=== PATIENT | female | born 1935 ===

== ENCOUNTER 2016-11-22 19:11 | Emergency (ER) | payer MEDICARE ==
--- NOTE | 2016-11-22 20:54 | RAD ---
HISTORY: Knee pain, ankle swelling COMPARISONS: None relevant TECHNIQUE: Multiple transverse and longitudinal ultrasound images were obtained of the left lower extremity from the level of the common femoral vein inferiorly through to the infrapopliteal veins using grayscale, color Doppler, and spectral Doppler imaging with and without compression and with augmentation. Comparison images were obtained of the contralateral common femoral vein. FINDINGS: VEINS: The venous system of the left lower extremity is compressible throughout its course, with normal flow on color Doppler imaging and normal response to augmentation on spectral Doppler imaging. SOFT TISSUES: Unremarkable. OTHER FINDINGS: There is a complicated popliteal cyst, with echogenic fluid, which measures approximately 9.1 x 0.8 x 3.7 cm IMPRESSION: NO LEFT LOWER EXTREMITY DEEP VEIN THROMBOSIS. 5.1 CM POPLITEAL FOSSA CYST, LIKELY A LARGE GARZON'S CYST
[2016-11-22 23:13] VITALS: BP 148/75
--- NOTE | 2016-11-23 13:00 | ED ---
donna Degroot Timothy, scribed for Pascual Borges MD on 11/22/16 at 2300 . Lower Extremity - HPI Summary HPI Summary: Olivia Jackson is a 81 yo female presenting to [facility] with 2/10 LLE pain and swelling since today with left knee pain for the past month. She states the pain increases with flexion of the left knee. Her MHx includes TIA. - History of Current Complaint Chief Complaint: EDExtremityLower Stated Complaint: LT KNEE/ANKLE PAIN Time Seen by Provider: 11/22/16 20:09 Hx Obtained From: Patient Mechanism Of Injury: Unknown Onset/Duration: Hours Severity Initially: Moderate Severity Currently: Moderate Pain Intensity: 2 Pain Scale Used: 0-10 Numeric Timing: Constant Location: Is Discrete @ - LLE Associated Signs And Symptoms: Positive: Swelling Aggravating Factor(s): Other - flexion - Allergies/Home Medications Allergies/Adverse Reactions: Allergies Allergy/AdvReac Type Severity Reaction Status Date / Time No Known Allergies Allergy Verified 11/22/16 19:32 PMH/Surg Hx/FS Hx/Imm Hx Neurological History: Reports: Other Neuro Impairments/Disorders - TIA Infectious Disease History: No Infectious Disease History: Denies: Traveled Outside the [place] in Last 30 Days - Family History Known Family History: Positive: Cardiac Disease Negative: Hypertension, Diabetes - Social History Alcohol Use: Weekly Hx Substance Use: No Substance Use Type: Reports: None Hx Tobacco Use: No Smoking Status (MU): Never Smoked Tobacco Review of Systems Constitutional: Negative Eyes: Negative ENT: Negative Cardiovascular: Negative Respiratory: Negative Gastrointestinal: Negative Genitourinary: Negative Musculoskeletal: Other - LLE swelling and pain Skin: Negative Neurological: Negative Psychological: Normal All Other Systems Reviewed And Are Negative: Yes Physical Exam Triage Information Reviewed: Yes Vital Signs On Initial Exam: Initial Vitals Temp Pulse Resp BP Pulse Ox 97.8 F 88 18 143/92 98 11/22/16 19:29 11/22/16 19:29 11/22/16 19:29 11/22/16 19:29 11/22/16 19:29 Vital Signs Reviewed: Yes Appearance: Positive: Well-Appearing, No Pain Distress, Well-Nourished Skin: Positive: Warm, Skin Color Reflects Adequate Perfusion, Dry Head/Face: Positive: Normal Head/Face Inspection Eyes: Positive: Normal ENT: Positive: Normal ENT inspection Neck: Positive: Supple, Nontender Respiratory/Lung Sounds: Positive: Clear to Auscultation, Breath Sounds Present Cardiovascular: Positive: RRR Abdomen Description: Positive: Nontender, Soft Bowel Sounds: Positive: Present Musculoskeletal: Positive: Other - tender at LLE with mild edema at left ankle Neurological: Positive: Normal Psychiatric: Positive: Normal, Affect/Mood Appropriate Diagnostics - Vital Signs Vital Signs Temp Pulse Resp BP Pulse Ox 11/22/16 21:48 98.9 F 67 16 147/73 100 11/22/16 19:29 97.8 F 88 18 143/92 98 - Laboratory Lab Statement: Any lab studies that have been ordered have been reviewed, and results considered in the medical decision making process. - Ultrasound No standard instances Ultrasound Interpretation: No Acute Changes - IMPRESSION: NO LEFT LOWER EXTREMITY DEEP VEIN THROMBOSIS. 5.1 CM POPLITEAL FOSSA CYST, LIKELY A LARGE MARIE'S CYST Ultrasound Interpretation Completed By: Radiologist - LLE US Lower Extremity Course/Dx - Course Assessment/Plan: Olivia Jackson is a 81 yo female presenting to [facility] with 2/10 LLE pain and swelling since today. Her medication list is reviewed this visit. Her LLE US suggests no DVT and a 5.1cm Marie's cyst. After clinical examination and review of her imaging study she will be discharged home with marie's cyst with appropriate instructions. - Diagnoses Provider Diagnoses: Marie's cyst Discharge - Discharge Plan Condition: Stable Disposition: HOME Patient Education Materials: Bakers Cyst (ED) Referrals: Mary Prado MD [Medical Doctor] - 2 Days [facility] PH[facility] REFERRAL [Outside] - 2 Days Additional Instructions: Please follow up with the primary care physician and orthopedist provided regarding your visit to the emergency department today. Return to the emergency department with any new or recurring symptoms. The documentation as recorded by the donna andino Timothy accurately reflects the service I personally performed and the decisions made by me, Pascual Borges MD.
== END 2016-11-22 23:12 | disposition home or self-care (01) ==
LOC: ED 19:11
DX: M71.20 Synovial cyst of popliteal space [Baker], unspecified knee (principal)
CPT/HCPCS: 99282